=== PATIENT | male | born 1955 | race Two or more races ===

== ENCOUNTER 2022-11-23 11:51 | Inpatient (IN) | payer OTHER, MEDICAID ==
[2022-11-19 12:39] LABS: Basophils # (auto) 0.1 10 ^3/uL (0-0.2); Basophils % (auto) 0.5 % (0.0-2.0); Eosinophils # (auto) 0.1 10 ^3/uL (0-0.8); Eosinophils % (auto) 1.1 % (0.0-7.0); Hematocrit 41.3 % (41.0-53.0); Hemoglobin 13.4 g/dL (13.5-17.5); Lymphocytes # (auto) 2.8 10 ^3/uL (0.4-5.4); Lymphocytes % (auto) 25.4 % (10.0-50.0); Mean Corpuscular Hemoglobin 30.2 pg (28.0-32.0); Mean Corpuscular Hgb Conc. 32.4 g/dL (32.0-36.0); Mean Corpuscular Volume 93.2 fL (80.0-100.0); Monocytes # (auto) 1.1 10 ^3/uL (0-1.3); Monocytes % (auto) 10.2 % (0.0-12.0); Neutrophils % (auto) 62.8 % (37.0-80.0); Nucleated Red Blood Cells % 0.1 %; Red Blood Cells 4.44 10^6/uL (4.5-5.90); Red Cell Distribution Width 14.6 % (11.8-14.3); White Blood Cell 11.1 10^3/uL (4.4-10.8)
[2022-11-19 12:54] LABS: INR 1.04 (0.9-1.15); Partial Thromboplastin Time 27.6 sec (24.6-33.4)
[2022-11-19 13:16] LABS: Potassium 4.8 mmol/L (3.5-5.1)
[2022-11-19 13:18] LABS: BUN/Creatinine Ratio 14.8 (10.0-20.0)
[~2022-11-23] VITALS: Ht 182.9 cm; Wt 121.9 kg
[2022-11-23] VITALS (10 sets, daily range): BP systolic 88–131; BP diastolic 36–72
[~2022-11-23 11:51] MED LIST: ALBU108A5 IN; ASPI1TAB20 PO; DAPA1TAB4 PO; DOCU-94 PO; FURO1TAB31 PO; IPRIH IN; NITR0.4S29 SL; OXYC-963 PO; PERCOT PO; SACU1TAB4 PO
[2022-11-23] MEDS ORDERED: fentaNYL CITRATE 100 MCG/2 ML VL ONE (13:04)
[2022-11-23] MEDS ORDERED: ANGIOMAX 250 MG VIAL IV ONE ×2 (13:04→14:31)
[2022-11-23] MEDS ORDERED: SODIUM CHL 0.9% 50 ML ONE ×2 (13:05→14:31)
[2022-11-23] MEDS ORDERED: MIDAZOLAM HCL 2MG/2ML 2ml VIAL (1mg/ml) ONE (13:05)
[2022-11-23] MEDS ORDERED: LIDOCAINE 2%HCL (LOCAL ANESTH.) INJ 20ML MDV ONE (13:05)
[2022-11-23] MEDS ORDERED: IODIXANOL 320MG/ML 100ML BTL IV ONE (13:49)
[2022-11-23] MEDS ORDERED: CLOPIDOGREL 300 MG TAB ONE (14:56)
[2022-11-23] MEDS ORDERED: MORPHINE SULFATE INJ 2 MG/ml SYRG IV PRN (17:00)
[2022-11-23] MEDS ORDERED: ONDANSETRON HCL 4 MG/2 ML VIAL IV PRN (17:00)
[2022-11-23] MEDS ORDERED: ALBUTEROL SULF HFA 90MCG INH 200DOSE IN PRN (17:00)
[2022-11-23] MEDS ORDERED: TEMAZEPAM 15 MG CAP PO PRN (17:00)
[2022-11-23] MEDS ORDERED: FUROSEMIDE 40 MG TAB PO PRN (17:00)
[2022-11-23] MEDS ORDERED: ACETAMINOPHEN 325 MG TAB PO PRN (17:00)
[2022-11-23] MEDS ORDERED: DOCUSATE SOD 100 MG CAP PO PRN (17:00)
[2022-11-23] MEDS ORDERED: HYDROcodone-ACET 5/325MG TAB PO PRN (17:00)
[2022-11-23] MEDS ORDERED: NITROGLYCERIN 0.4 MG SL TAB SL PRN (17:00)
[2022-11-23] MEDS ORDERED: ALBUTEROL SULF 2.5 MG/0.5ML(0.5%) NEB SOLN NEB PRN (17:45)
[2022-11-23] MEDS ORDERED: IPRATROPIUM BROM 0.5 MG/2.5ML INH SOL NEB PRN (18:00)
[2022-11-23] MEDS ORDERED: OXYCODONE W/ ACETAMINOPHEN 5/325MG TABLET PO PRN (20:00)
[2022-11-23] MEDS: OXYCODONE W/ ACETAMINOPHEN 5/325MG TABLET PO PRN (20:52)
[2022-11-23] MEDS: SACUBITRIL VALSARTAN PO SCH (20:58)
[2022-11-23] MEDS ORDERED: DOCUSATE SOD 100 MG CAP PO SCH (22:00)
[2022-11-24] MEDS: OXYCODONE W/ ACETAMINOPHEN 5/325MG TABLET PO PRN ×2 (03:57→10:51)
[2022-11-24 05:00] VITALS: BP 120/64
[2022-11-24 05:48] LABS: Basophils # (auto) 0 10 ^3/uL (0-0.2); Basophils % (auto) 0.3 % (0.0-2.0); Eosinophils # (auto) 0.1 10 ^3/uL (0-0.8); Eosinophils % (auto) 0.8 % (0.0-7.0); Hematocrit 35.9 % (41.0-53.0); Lymphocytes # (auto) 2.1 10 ^3/uL (0.4-5.4); Lymphocytes % (auto) 18.6 % (10.0-50.0); Mean Corpuscular Hgb Conc. 33.4 g/dL (32.0-36.0); Mean Corpuscular Volume 92.6 fL (80.0-100.0); Monocytes # (auto) 1.2 10 ^3/uL (0-1.3); Monocytes % (auto) 10.4 % (0.0-12.0); Neutrophils # (auto) 7.8 10 ^3/uL (1.6-8.6); Neutrophils % (auto) 69.9 % (37.0-80.0); Red Blood Cells 3.87 10^6/uL (4.5-5.90); Red Cell Distribution Width 13.8 % (11.8-14.3); White Blood Cell 11.2 10^3/uL (4.4-10.8)
[2022-11-24 06:18] LABS: Potassium 4.2 mmol/L (3.5-5.1)
[2022-11-24 06:32] LABS: Albumin 3.5 g/dL (3.4-5.0); BUN/Creatinine Ratio 20.6 (10.0-20.0); Bilirubin, Total 0.7 mg/dL (0.2-1.0); Total Protein 6.9 g/dL (6.4-8.2)
[2022-11-24 09:00] VITALS: BP 111/58
[2022-11-24] MEDS: CLOPIDOGREL BISULFATE 75 MG TAB PO SCH ×2 (09:28→10:50)
[2022-11-24] MEDS: SACUBITRIL VALSARTAN PO SCH (09:28)
[2022-11-24] MEDS: ASPirin-EC 81 mg tab PO SCH ×2 (09:28→10:50)
[2022-11-24] MEDS ORDERED: CLOP75TA70 PO (09:33)
[2022-11-24] MEDS ORDERED: IPRATROPIUM BROM 0.5 MG/2.5ML INH SOL NEB SCH (10:00)
[2022-11-24] MEDS ORDERED: ALBUTEROL SULF 2.5 MG/0.5ML(0.5%) NEB SOLN NEB SCH (10:00)
[2022-11-24 11:04] VITALS: BP 111/58
== END 2022-11-24 13:21 | disposition home or self-care (01) | DRG 254 ==
LOC: CATH 11:51 → TELE 16:32 → TELE-WESTW 17:38
PROVIDERS: ADMIT Nurse Practitioner; ATTEND Internal Medicine
PROC: 047D3DZ Dilation of Left Common Iliac Artery with Intraluminal Device, Percutaneous Approach (ICD-10-PCS; principal; 2022-11-23)
PROC: 04FD3ZZ Fragmentation of Left Common Iliac Artery, Percutaneous Approach (ICD-10-PCS; 2022-11-23)
PROC: B41GYZZ Fluoroscopy of Left Lower Extremity Arteries using Other Contrast (ICD-10-PCS; 2022-11-23)
DX: I70.212 Atherosclerosis of native arteries of extremities with intermittent claudication, left leg (principal); I11.0 Hypertensive heart disease with heart failure; E66.01 Morbid (severe) obesity due to excess calories; I50.9 Heart failure, unspecified; Z68.36 Body mass index [BMI] 36.0-36.9, adult
CPT/HCPCS: 36415; 37221; 75710; 76937; 80048; 80053; 85025; 85610; 85730; 94640; 99152; 99153; G0378; J2250; Q9967